=== PATIENT | male | born 1975 | race Caucasian/White ===

== ENCOUNTER → 2017-12-18 | Outpatient (CLI) | payer BC | END | disposition home or self-care (01) | LOC: PCVCIMAG 12:55 | DX: R07.9 Chest pain, unspecified (principal); I71.2 Thoracic aortic aneurysm, without rupture; I10 Essential (primary) hypertension; E78.5 Hyperlipidemia, unspecified; M79.603 Pain in arm, unspecified | CPT/HCPCS: 93325; 93351 ==

== ENCOUNTER → 2018-12-17 | Outpatient (CLI) | payer BC ==
--- NOTE | 2018-12-17 10:17 | PCVCIMAG ---
APPROVED REPORT Study performed: 12/17/2018 09:11:32 Exam: Stress Echocardiogram Indication: Chest pain, Dilated Ascending Aorta Patient Location: Echo lab Stress Nurse: Marci Delatorre RN Status: routine Ht: 6 ft 5 in HR: 75 bpm BP: 112/82 mmHg Rhythm: NSR Medical History Medical History: Dilated Ascending Procedure The patient underwent an Exercise Stress Test using the Kishan Protocol. Blood pressure, heart rate, and EKG were monitored. An Echocardiogram was performed by sonogram technician in four stages in quad fashion. At peak stress, four selected images were obtained and placed side by side with resting images for comparison. Stress Test Details Stress Test: Exercise stress testing was performed using a Kishan protocol. HR Resting HR: 75 bpmMax Heart Rate (APMHR): 176 bpm Max HR Achieved: 176 bpmTarget HR (85% APMHR): 149 bpm % of APMHR: 100 Recovery HR: 92 bpm HR response to stress: Normal HR response to stress BP Resting BP: 112/82 mmHg Max BP: 186/90 mmHg Recovery BP: 144/86 mmHg BP response to stress: Normal blood pressure response to stress. ECG Resting ECG: Sinus Rhythm Stress ECG: Sinus Rhythm ST Change: Normal Maximum ST Deviation: 0 mm Arrhythmia: None Recovery ECG: Sinus Rhythm Recovery ST Change: Normal Recovery ST Deviation: 0 mm Recovery Arrhythmia: None Clinical Reason for Termination: Maximal effort Exercise duration: 10 min 15 sec Highest Stage Achieved: Stage 4: 4.2 mph at 16% grade. Exercise capacity: 13.40 METs Overall Exercise Capacity for Age: Good Angina Score: None Stress ECG Conclusion Clinical: Non-ischemic ECG: Non-ischemic Mccormick Treadmill Score is 10.0 which is Low risk. Pre-Stress Echo The resting Echocardiogram showed normal left ventricular contractility with an estimated Ejection Fraction of about 55-60%. Normal wall motion in all segments on baseline images. Post-Stress Echo The stress Echocardiogram showed normal left ventricular contractility with an estimated Ejection Fraction of about 60-65%. Normal augmentation of wall motion in all segments on post stress images. Clinical No clinical or ECG evidence for ischemia. Conclusion Clinical Response: Non-ischemic Exercise Capacity: Average Stress ECG Response: Non-ischemic Stress Echo Images: Non-ischemic The left ventricle is normal in size and wall thickness in both the rest and stress images. Ascending Aorta measures 4.3.-4.4 cm. Normal stress echocardiogram with maximal exercise stress. <Conclusion> The left ventricle is normal in size and wall thickness in both the rest and stress images. Ascending Aorta measures 4.3.-4.4 cm. Normal stress echocardiogram with maximal exercise stress.
== END | disposition home or self-care (01) ==
LOC: PCVCIMAG 09:10
PROVIDERS: ATTEND Internal Medicine
DX: R07.9 Chest pain, unspecified (principal)
CPT/HCPCS: 93325; 93351